=== PATIENT | female | born 2005 | race Two or more races ===

== ENCOUNTER 2025-03-31 16:13 | Outpatient (CLI) | payer OTHER ==
[2025-04-03 10:21] LABS: Hepatitis B Surface Antigen Negative (Negative)
== END 2025-03-31 17:00 | disposition home or self-care (01) ==
LOC: LAB 16:13
PROVIDERS: ATTEND Nurse Practitioner
DX: S61.032A Puncture wound without foreign body of left thumb without damage to nail, initial encounter (principal); W46.0XXA Contact with hypodermic needle, initial encounter; Y99.0 Civilian activity done for income or pay; Z77.21 Contact with and (suspected) exposure to potentially hazardous body fluids
CPT/HCPCS: 36415; 86703; 86706; 86803; 87340